=== PATIENT | male | born 1980 | race Caucasian/White ===

== ENCOUNTER 2019-07-29 01:21 | Emergency (ER) | payer BC ==
[2019-07-29] MEDS ORDERED: Morphine 4 MG/ML VIAL ONE ×3 (01:42→03:39)
[2019-07-29] MEDS ORDERED: Ondansetron PF 4 MG/2 ML Vial ONE (01:42)
[2019-07-29 01:50] LABS: #Basophils 0.1 thou/uL (0.0-0.2); #Lymphocytes 1.4 thou/uL (1.20-3.40); #Monocytes 0.5 thou/uL (0.11-0.59); #Neutrophils 8.9 thou/uL (1.40-6.50); %Basophils 0.5 % (0.0-1.0); %Eosinophils 0.4 % (0.0-10.0); %Lymphocytes 12.9 % (21.0-51.0); %Monocytes 4.6 % (0.0-10.0); %Neutrophils 81.6 % (42.0-75.0); Hemoglobin 16.2 g/dL (14.0-18.0); Mean Corpuscular HGB CONC 35.7 g/dL (32.0-36.0); Mean Corpuscular Hemoglobin 31.6 pg (27.0-31.0); Mean Corpuscular Volume 88.4 fL (78.0-98.0); Mean Platelet Volume 6.5 fL (7.4-10.4); Platelet Count 303 thou/uL (130-400); RBC Distribution Width 11.2 % (11.5-14.5); Red Blood Cell (RBC) Count 5.12 mill/uL (4.70-6.10); White Blood Cell (WBC) Count 10.9 thou/uL (4.8-10.8)
[2019-07-29 02:10] LABS: ALT (SGPT) 14 U/L (8-55); AST (SGOT) 16 U/L (5-34); Alkaline Phosphatase 100 U/L (40-110); Anion Gap 15 mmol/L (10-20); BUN (Urea Nitrogen) 14 mg/dL (8.9-20.6); Bilirubin, Total 0.6 mg/dL (0.2-1.2); Calc. Creatinine Clearance 0 mL/min (70-130); Calcium 9.5 mg/dL (7.8-10.44); Carbon Dioxide 26 mmol/L (22-29); Chloride 99 mmol/L (98-107); Estimated GFR-MDRD 63; Globulin 3.2 g/dL (2.4-3.5); Glucose 122 mg/dL (70-105); Lipase 45 U/L (8-78); Potassium 3.8 mmol/L (3.5-5.1); Protein, Total 8.2 g/dL (6.0-8.3); Sodium 136 mmol/L (136-145)
[2019-07-29 03:42] LABS: Bilirubin Negative (Negative); Blood, Urine Negative (Negative); Clarity Clear (Clear); Glucose, Urine (Dipstick) Normal (Negative); Leukocyte Negative Leu/uL (Negative); Nitrite Negative (Negative); Protein, Urine (Dipstick) Negative (Neg-Trace); Urobilinogen Normal mg/dL (Less than 2)
[2019-07-29] MEDS ORDERED: Dicyclomine 20 MG TAB ONE (03:46)
--- NOTE | 2019-07-29 09:00 | ULT ---
PRELIMINARY REPORTS/[facility]/AFTER HOURS PROCEDURE PROCEDURE INFORMATION: Exam: US Abdomen Limited, Right Upper Quadrant Exam date and time: 07/29/2019 2:18 AM Clinical history: 38 years old, male; Other: Ruq pain TECHNIQUE: Imaging protocol: Real-time ultrasound of the abdomen with image documentation. Examination was focused on the right upper quadrant. COMPARISON: No relevant prior studies available. FINDINGS: Liver: No masses. Gallbladder: Multiple gallstones with small volume sludge. There is no gallbladder wall thickening. Common bile duct: 5-6 mm. No stones. No dilation. Pancreas: Visualized pancreas is unremarkable. Right kidney: No mass. No hydronephrosis. IMPRESSION: Cholelithiasis and sludge without other findings of cholecystitis. Thank you for allowing us to participate in the care of your patient. Dictated and Authenticated by: Gricel Solis MD 07/29/2019 3:41 AM Central Time ([place] & [place]) FINAL REPORT RIGHT UPPER QUADRANT SONOGRAM PERFORMED ON AN EMERGENCY BASIS: 07/29/2019 0223 HOURS HISTORY: Right upper quadrant pain. FINDINGS: I agree with the preliminary report by Dr. Solis from [facility]. Echogenic stones and biliary sludge are present within the gallbladder lumen. Common duct within norm al limits. No findings of acute inflammation. CODE QA Transcribed Date/Time: 07/29/2019 9:32 AM
== END 2019-07-29 04:15 | disposition home or self-care (01) ==
LOC: ERS 01:21
DX: K80.20 Calculus of gallbladder without cholecystitis without obstruction (principal)
CPT/HCPCS: 76705; 80053; 81003; 83690; 85025; 96361; 96374; 96375; 96376; J0500; J2270; J2405

== ENCOUNTER 2019-08-02 09:08 | Outpatient (CLI) | payer BC ==
[2019-08-02 12:01] LABS: #Lymphocytes 1.6 thou/uL (1.20-3.40); #Monocytes 0.5 thou/uL (0.11-0.59); #Neutrophils 3.6 thou/uL (1.40-6.50); %Basophils 0.5 % (0.0-1.0); %Eosinophils 0.8 % (0.0-10.0); %Lymphocytes 28.5 % (21.0-51.0); %Monocytes 8.7 % (0.0-10.0); %Neutrophils 61.5 % (42.0-75.0); Hemoglobin 15.8 g/dL (14.0-18.0); Mean Corpuscular HGB CONC 34.6 g/dL (32.0-36.0); Mean Corpuscular Hemoglobin 31.6 pg (27.0-31.0); Mean Corpuscular Volume 91.5 fL (78.0-98.0); Mean Platelet Volume 6.8 fL (7.4-10.4); Platelet Count 307 thou/uL (130-400); RBC Distribution Width 11.3 % (11.5-14.5); White Blood Cell (WBC) Count 5.8 thou/uL (4.8-10.8)
[2019-08-02 12:36] LABS: ALT (SGPT) 60 U/L (8-55); AST (SGOT) 46 U/L (5-34); Albumin 4.7 g/dL (3.5-5.0); Alkaline Phosphatase 105 U/L (40-110); Anion Gap 15 mmol/L (10-20); BUN (Urea Nitrogen) 11 mg/dL (8.9-20.6); Bilirubin, Direct 0.5 mg/dL (0.1-0.3); Bilirubin, Total 1.2 mg/dL (0.2-1.2); Calc. Creatinine Clearance 0 mL/min (70-130); Calcium 9.5 mg/dL (7.8-10.44); Carbon Dioxide 25 mmol/L (22-29); Chloride 103 mmol/L (98-107); Estimated GFR-MDRD 65; Glucose 89 mg/dL (70-105); Potassium 3.8 mmol/L (3.5-5.1); Protein, Total 7.7 g/dL (6.0-8.3); Sodium 139 mmol/L (136-145)
== END 2019-08-02 09:09 | disposition home or self-care (01) ==
LOC: LABBT 09:08
PROVIDERS: ATTEND Surgery
DX: Z01.812 Encounter for preprocedural laboratory examination (principal); K80.20 Calculus of gallbladder without cholecystitis without obstruction
CPT/HCPCS: 80053; 80076; 85025

== ENCOUNTER → 2019-08-10 | Day surgery (SDC) | payer BC ==
[2019-08-02 09:38] VITALS: BMI 31.4
[~2019-08-10] MED LIST: Bupivacaine/Epinephrine 0.25% 30 ML VIAL ONE; Fentanyl 100 MCG/2 ML VIAL ONE; HYDROcodone/Acetaminophen 5/325 mg Tablet ONE; Iothalamate Meglumine 60% 50 ML VIAL FS ONE; Midazolam HCl 2 mg/2 ml Vial ONE
--- NOTE | 2019-08-10 14:12 | RAD ---
OPERATIVE CHOLANGIOGRAM: Date: 08/10/19 INDICATION: Intraoperative imaging during cholecystectomy procedure for intraoperative cholangiogram. FINDINGS/IMPRESSION: Single image presented. Common bile duct is opacified and appears unremarkable. POS: [facility]
--- NOTE | 2019-08-10 15:16 | OP ---
DATE OF PROCEDURE: 08/10/2019 PREOPERATIVE DIAGNOSES: Symptomatic gallstones, elevated liver function test. POSTOPERATIVE DIAGNOSES: Symptomatic gallstones, elevated liver function test. PROCEDURES PERFORMED: Laparoscopic cholecystectomy, intraoperative cholangiogram. ANESTHESIA: General. ESTIMATED BLOOD LOSS: Minimal. COMPLICATIONS: None. SPECIMEN: Gallbladder. FINDINGS: Normal cholangiogram. TECHNIQUE: The patient was taken to the operating room and laid supine on the operating room table. After general anesthetic was obtained, the abdomen was prepped and draped in a sterile fashion. A curved incision was made above the umbilicus, cautery dissected down to and scored the fascia. Abdominal cavity was entered bluntly using a Guadalupe clamp. Holding stitch of PDS was placed on each side of the fascia. Sam trocar was placed. High-flow pneumoperitoneum was obtained. Upper midline 5 mm port and two right upper quadrant 5 mm ports were placed under direct visualization. Gallbladder was retracted from the gallbladder fossa. The peritoneum was opened anteriorly and posteriorly. The critical view of triangle was seen showing only the cystic duct and cystic artery branching medial to lateral and no other branching structures. A clip was placed on the cystic duct. A small ductotomy was made just proximal to that. A cholangiocatheter was brought in through a separate stab incision, placed in the cystic duct and a cholangiogram was performed, which showed good contrast flow into the duodenum, right and left hepatic duct system without obstruction. Cholangiocatheter was removed. Two clips were placed proximally on the cystic duct. It was cut using laparoscopic scissors. Cystic artery was taken using two clips proximally, one clip distally and cut using laparoscopic scissors. Cautery was used to dissect the gallbladder out of the gallbladder fossa. The gallbladder was placed in EndoCatch bag and brought out through the Sam. All port sites were infiltrated using local anesthetic. There was no bleeding or bile in the liver bed. All ports were removed under camera visualization. Pneumoperitoneum was let down. PDS used to close the fascial defect above the umbilicus. All incisions were irrigated and closed using 4-0 Monocryl and Dermabond. The patient was sent to Recovery in stable condition. All instrument counts, needle counts, and lap counts were correct. Job ID: [id number]
== END ==
LOC: SDC 08:31
PROVIDERS: ATTEND Surgery
PROC: 0FT44ZZ Resection of Gallbladder, Percutaneous Endoscopic Approach (ICD-10-PCS; principal; 2019-08-10)
PROC: BF101ZZ Fluoroscopy of Bile Ducts using Low Osmolar Contrast (ICD-10-PCS; principal; 2019-08-10)
DX: K80.10 Calculus of gallbladder with chronic cholecystitis without obstruction (principal); R79.89 Other specified abnormal findings of blood chemistry; F17.200 Nicotine dependence, unspecified, uncomplicated
CPT/HCPCS: 47532; 88304; J0690; J2250; J3010